=== PATIENT | female | born 1985 | race American Indian/Alaskan Native ===

== ENCOUNTER 2018-09-24 11:11 | Inpatient (IN) | payer MEDICAID, OTHER ==
[2018-09-24] MEDS ORDERED: LACTATED RINGERS 500 ML IV ONE (11:39)
[2018-09-24 12:49] LABS: Hemoglobin 11.8 gm/dl (10.1-14.3); Mean Corpuscular HGB Conc 34 % (30-34); Mean Corpuscular Volume 96 fl (79-97); Platelet Count 195 K/mm3 (140-440); Red Blood Count 3.63 M/mm3 (3.65-5.03); Red Cell Distribution Width 13.6 % (13.2-15.2)
[2018-09-24] MEDS ORDERED: APRESOLINE IV PRN (12:50)
[2018-09-24 13:01] LABS: Bilirubin,Urine NEG (Negative); Blood,Urine SM (Negative); Color,Urine Yellow (Yellow); Hyaline Casts,Urine 1 /LPF; Mucus,Urine FEW /HPF; Urobilinogen,Urine < 2.0 mg/dL (<2.0)
[2018-09-24 13:07] LABS: Alanine Aminotransferase 22 units/L (7-56); Uric Acid 4.1 mg/dL (3.5-7.6)
--- NOTE | 2018-09-24 13:09 | History and Physical Report ---
History of Present Illness Date of examination: 09/24/18 Date of admission: 09/24/18 12:18 Chief complaint: SIUP at 28 weeks and 5 days gestation with elevated BP and contractions. History of present illness: Patient is a 32 year old , LMP 03/06/18, EDC 12/11/18 at 28 weeks and 5 days gestation who was sent from the office for elevated BP and irregular cont ractions. In the triage, her BP was in the 170's/100's. Patient was seen in the ER at [place] 3 days ago for contractions. She given IV fluids and 2 doses of terbutaline. She said that her contractions returned 4 hours later and she has been ellyn since. She denies any fluid leakage or bleeding. She reports good movement. Exam: cervix closed/50%/-3. Greenish discharge. tracing is CAT1. Past History - Obstetrical History Expected Date of Delivery: 12/11/18 Actual Gestation: 29 Week(s) 0 Day(s) : 3 Para: 1 Number of Pregnancies: 1 Spontaneous Abortions: 1 Number of Living Children: 1 Medications and Allergies Allergies Allergy/AdvReac Type Severity Reaction Status Date / Time No Known Allergies Allergy Unverified 05/14/14 11:13 Home Medications Medication Instructions Recorded Confirmed Last Taken Type Fluticasone [Flonase] 1 spray NS QDAY #1 bottle 05/14/14 Unknown Rx Promethazine /Codeine 5 ml PO Q6H PRN #120 ml 05/14/14 Unknown Rx [Phenergan/Codeine 6.25-10 mg/5 ml] predniSONE [Deltasone] 40 mg PO QDAY #10 tab 05/14/14 Unknown Rx Active Meds: Active Medications Acetaminophen (Tylenol) 650 mg PO ONCE ONE Stop: 09/24/18 13:41 Hydralazine HCl (Apresoline) 5 mg IV Q30MIN PRN PRN Reason: Hypertension Metronidazole (Flagyl) 2,000 mg PO ONCE ONE; Protocol Stop: 09/24/18 13:46 Nifedipine (Procardia*For Tocolysis Only*) 10 mg PO Q4HR LEONA - Vital Signs Vital signs: Vital Signs Pulse BP 67 178/103 09/24/18 11:53 09/24/18 11:53 Temp Pulse Resp BP Pulse Ox 66 163/100 09/24/18 12:54 09/24/18 12:54 - Physical Exam Cardiovascular: Normal S1, Normal S2 Lungs: Positive: Clear to auscultation Vulva: both: normal Vagina: Positive: discharge (Greenish) Adnexa: both: normal Deep Tendon Reflex Grade: Normal but brisk +3 - Obstetrical FHR: category 1 Uterine Contraction Monitor Mode: External Cervical Dilatation: 0 Cervical Effacement Percentage: 0 station: -3 Uterine Contraction Pattern: Absent Results Result Diagrams: 09/24/18 12:00 09/24/18 12:00 Abnormal lab results 09/24/18 Range/Units 12:00 RBC 3.63 L (3.65-5.03) M/mm3 MCH 33 H (28-32) pg All other labs normal. Assessment and Plan - Patient Problems (1) 28 weeks gestation of Current Visit: Yes Status: Acute (2) contractions Current Visit: Yes Status: Acute Plan to address problem: FFN done. (3) Pre-eclampsia Current Visit: Yes Status: Acute Plan to address problem: Admit to antepartum. IV fluid. Monitor BP. Labetolol for BP control. Hydralazine for diastolic >100. Toxemia labs. Magnesium sulfate for seizure prophylaxis. Monitor Mg levels, urine output, DTRs. NICU and [facility] consults. (4) Vaginal discharge Current Visit: Yes Status: Acute Plan to address problem: Genital Cx done. Flagyl given.
[2018-09-24] MEDS ORDERED: TYLENOL PO ONE ×2 (13:40→22:00)
[2018-09-24] MEDS ORDERED: FLAGYL PO ONE (13:45)
[2018-09-24] MEDS ORDERED: MAGNESIUM SULFATE 40GM/1000ML 40 GM/1,000 ML BAG IV SCH ×2 (14:00→23:45)
[2018-09-24] MEDS ORDERED: NORMODYNE PO SCH (14:00)
[2018-09-24] MEDS ORDERED: MAGNESIUM SULFATE 4GM/100ML 4 GM/100 ML BAG IV ONE (14:00)
[2018-09-24] MEDS ORDERED: CELESTONE SOLUSPAN IM SCH (14:20)
--- NOTE | 2018-09-24 14:45 | Event Note ---
Date: 09/24/18 Patient was admitted for elevated BP. She was given hydralazine 5 mg IV for diastolic of 107. She was then started on magnesium sulfate. Her BP decreased to 90/53 after the hydralazine and bradycardia was noticed. I was in the OR in a C/section. The nurse came in to notify me. Ephedrine was given. The nurse called another provider to assess the patient while I was still in the OR in a case. She called Dr. Narayan who came in a few minutes later. At that time, the BP recoved to 117/67. tracing in 140's, no further decelerations were seen. Sonogram was ordered. Patient remained stable after the event.
--- NOTE | 2018-09-24 16:01 | Ultrasound Report ---
PROCEDURE: US OB BPP WO NON-STRESS TECHNIQUE: Limited OB ultrasound for BPP HISTORY: HTN COMPARISONS: None FINDINGS: Biophysical profile scoring [2]movement [2]tone [2]breathing [2]fluid 8/8 overall score Activity: Monitored Cardiac motion: 155 BPM using M-mode doppler Amniotic Fluid Volume: Adequate IMPRESSION: Single viable with 8/8 biophysical profile score This document is electronically signed by Kimmie Cantrell MD., September 24 2018 03:58:43 PM ET
[2018-09-24] MEDS ORDERED: LACTATED RINGERS 1,000 ML ONE (16:46)
--- NOTE | 2018-09-24 16:49 | Ultrasound Report ---
PROCEDURE: US OB FOLLOW UP TECHNIQUE: Obstetric ultrasound was performed HISTORY: HTN COMPARISONS: None. FINDINGS: There is a single live intrauterine in cephalic presentation. Amniotic fluid index is 13.1 cm. heart rate is 149 bpm. Biparietal diameter is 6.47 cm, which corresponds to a gestational age of 26 weeks, 1 day. Head circumference is 24.42 cm, which corresponds to a gestational age of 26 weeks, 4 days. Abdominal circumference is 20.52 cm, corresponding to a gestational age of 25 weeks, 1 day. Femoral length is 4.82 cm, which corresponds to a gestational age of 26 weeks, 1 day. Composite gestational age by ultrasound is 26 weeks, 0 days, with estimated date of delivery of 019. Estimated weight is 839 g. IMPRESSION: Single live intrauterine with gestational age by ultrasound of 26 weeks, 0 days, with estim ated date of delivery of 12/31/2018. This document is electronically signed by Christina Corcoran MD., September 24 2018 04:47:43 PM ET
--- NOTE | 2018-09-24 20:04 | Ultrasound Report ---
PROCEDURE: US OB VELOCIMETRY UMBILCAL ART TECHNIQUE: Real-time color duplex sonography was performed of the umbilical cord. Images are submitt ed for interpretation. HISTORY: Hypertension COMPARISONS: OB ultrasound performed on the same day FINDINGS: heart rate 154 bpm. S/D ratio: 1. free loop: 2.8 2. free loop: 3.42 3. free loop: 2.8 S/D ratio average: 3.0 Diastolic flow is preserved. Waveform appears normal RI: 1. free loop: 0.65 2. free loop: 0.7 3. free loop: 0.65 RI average: 0.67 Diastolic flow is preserved. Waveform appears normal. IMPRESSION: Normal Umbilical Cord duplex This document is electronically signed by Dinora Art MD., September 24 2018 08:01:49 PM ET
--- NOTE | 2018-09-24 22:58 | Progress Note ---
Assessment and Plan - Patient Problems (1) 28 weeks gestation of Current Visit: Yes Status: Acute (2) contractions Current Visit: Yes Status: Acute Plan to address problem: FFN done. (3) Pre-eclampsia Current Visit: Yes Status: Acute Plan to address problem: Monitor BP. Labetolol for BP control. Hydralazine for diastolic >100. Patient is symptomatic. Will restart magnesium sulfate for seizure prophylaxis. Monitor Mg levels, urine output, DTRs. Subjective - Subjective Date of service: 09/24/18 Principal diagnosis: SIUP at 28 weeks 5 days gestation with elevated BP. Interval history: Patient is a 32 year old , LMP 03/06/18, EDC 12/11/18 at 28 weeks and 5 days gestation who was admitted for elevated BP and contractions. Her BP was in the 170's/100's on admission. She was started on magnesium sulfate, celestone dose #1 given for FLM. She denies any fluid leakage or bleeding. She reports good movement. Later on this afternoon, her BP became stable and the magnesium was discontinued by the covering provider. I was called by the nurse to assess the patient for headache and visual disturbances. Her current BP is 128/80. Patient says that she is still having contractions and sees spots of light in front of her eyes. Cervix: deferred. Objective - Vital Signs Vital Signs: Vital Signs - 12hr 09/24/18 09/24/18 09/24/18 11:53 12:09 12:24 Temperature Pulse Rate 67 70 68 Respiratory Rate Blood Pressure 178/103 156/94 167/98 09/24/18 09/24/18 09/24/18 12:39 12:54 13:09 Temperature Pulse Rate 81 66 67 Respiratory Rate Blood Pressure 172/107 163/100 156/93 09/24/18 09/24/18 09/24/18 13:10 13:25 13:39 Temperature 98.2 F Pulse Rate 83 123 H Respiratory 20 Rate Blood Pressure 144/88 117/59 09/24/18 09/24/18 09/24/18 13:54 14:10 14:15 Temperature Pulse Rate 112 H 87 92 H Respiratory Rate Blood Pressure 119/61 84/49 90/53 09/24/18 09/24/18 09/24/18 14:19 14:24 14:39 Temperature Pulse Rate 102 H 112 H 100 H Respiratory Rate Blood Pressure 101/57 127/70 103/58 09/24/18 09/24/18 09/24/18 14:54 15:11 15:24 Temperature Pulse Rate 101 H 96 H 100 H Respiratory Rate Blood Pressure 111/66 119/84 127/85 09/24/18 09/24/18 09/24/18 15:39 15:55 16:09 Temperature Pulse Rate 93 H 92 H 90 Respiratory Rate Blood Pressure 129/76 134/76 132/75 09/24/18 09/24/18 09/24/18 16:24 16:39 16:54 Temperature Pulse Rate 93 H 95 H 91 H Respiratory Rate Blood Pressure 123/67 137/81 132/88 09/24/18 09/24/18 09/24/18 17:09 17:24 17:39 Temperature Pulse Rate 95 H 95 H 91 H Respiratory Rate Blood Pressure 134/84 136/82 132/80 09/24/18 09/24/18 09/24/18 17:54 18:09 18:24 Temperature Pulse Rate 95 H 82 114 H Respiratory Rate Blood Pressure 140/84 140/84 94/51 09/24/18 09/24/18 09/24/18 18:39 18:54 19:09 Temperature Pulse Rate 111 H 116 H 103 H Respiratory Rate Blood Pressure 102/51 108/50 129/68 09/24/18 09/24/18 09/24/18 19:24 19:39 19:54 Temperature Pulse Rate 101 H 98 H 100 H Respiratory Rate Blood Pressure 126/67 123/62 113/63 09/24/18 09/24/18 09/24/18 20:09 20:25 20:40 Temperature Pulse Rate 98 H 96 H 98 H Respiratory Rate Blood Pressure 119/67 123/68 122/76 09/24/18 09/24/18 09/24/18 20:54 21:10 21:25 Temperature Pulse Rate 91 H 102 H 95 H Respiratory Rate Blood Pressure 127/77 137/82 132/79 09/24/18 09/24/18 09/24/18 21:38 21:39 21:54 Temperature Pulse Rate 100 H 105 H Respiratory 18 Rate Blood Pressure 119/62 122/63 09/24/18 09/24/18 09/24/18 22:09 22:24 22:39 Temperature Pulse Rate 101 H 105 H 104 H Respiratory Rate Blood Pressure 111/62 123/76 137/86 - Exam Cardiovascular: Normal S1, Normal S2 Lungs: Clear to auscultation Vulva: both: normal FHR: category 1 Uterine Contraction Monitor Mode: External - Labs Labs: Abnormal Labs 09/24/18 09/24/18 09/24/18 12:00 12:00 20:27 RBC 3.63 L MCH 33 H Creatinine 0.5 L Magnesium 2.40 H Lactate Dehydrogenase 330 H Laboratory Results - last 24 hr 09/24/18 09/24/18 09/24/18 11:45 12:00 12:00 WBC 9.4 RBC 3.63 L Hgb 11.8 Hct 35.0 MCV 96 MCH 33 H MCHC 34 RDW 13.6 Plt Count 195 Creatinine 0.5 L Estimated GFR > 60 Uric Acid 4.1 Magnesium AST 28 ALT 22 Lactate Dehydrogenase 330 H Urine Color Yellow Urine Turbidity Slightly-cloudy Urine pH 7.0 Ur Specific [place] 1.019 Urine Protein 100 mg/dl Urine Glucose (UA) Neg Urine Ketones Neg Urine Blood Sm Urine Nitrite Neg Urine Bilirubin Neg Urine Urobilinogen < 2.0 Ur Leukocyte Esterase Tr Urine WBC (Auto) 3.0 Urine RBC (Auto) 5.0 U Epithel Cells (Auto) 13.0 Hyaline Casts 1 Urine Mucus Few Fibronectin 09/24/18 09/24/18 12:45 20:27 WBC RBC Hgb Hct MCV MCH MCHC RDW Plt Count Creatinine Estimated GFR Uric Acid Magnesium 2.40 H AST ALT Lactate Dehydrogenase Urine Color Urine Turbidity Urine pH Ur Specific [place] Urine Protein Urine Glucose (UA) Urine Ketones Urine Blood Urine Nitrite Urine Bilirubin Urine Urobilinogen Ur Leukocyte Esterase Urine WBC (Auto) Urine RBC (Auto) U Epithel Cells (Auto) Hyaline Casts Urine Mucus Fibronectin Negative
[2018-09-25] MEDS: LACTATED RINGERS 1,000 ML IV SCH ×2 (01:19→12:43)
[2018-09-25] MEDS: PROCARDIA*For Tocolysis only PO SCH ×2 (08:15→11:27)
--- NOTE | 2018-09-25 08:19 | Progress Note ---
Assessment and Plan - Patient Problems (1) 28 weeks gestation of Current Visit: Yes Status: Acute (2) contractions Current Visit: Yes Status: Acute Plan to address problem: FFN negative. (3) Pre-eclampsia Current Visit: Yes Status: Acute Plan to address problem: Monitor BP. Labetolol for BP control. Hydralazine for diastolic >100. Patient is symptomatic. Pt is on magnesium sulfate for seizure prophylaxis. Monitor Mg levels, urine output, DTRs. Subjective - Subjective Date of service: 09/25/18 Principal diagnosis: SIUP at 29 weeks gestation with elevated BP. Interval history: Patient is a 32 year old , LMP 03/06/18, EDC 12/11/18 at 29 weeks gestation who was admitted for elevated BP and contractions. Her BP was in the 170's/100's on admission. She was started on magnesium sulfate, celestone dose #1 given for FLM. She denies any fluid leakage or bleeding. She reports good movement. Later in the day, her BP became stable and the magnesium was discontinued by the covering provider. I was called by the nurse to assess the patient for headache and visual disturbances. Her current BP is 128/80. Patient says that she is still having contractions and sees spots of light in front of her eyes. Magnesium was restarted. Her BP remained stable during the night. This AM, she reported occasional headache. She reports occasional cramps. Cervix:closed (unchanged). Sonogram 09/24 showed normal growth patterns and umbilical doppler, BPP 8/8. Objective - Vital Signs Vital Signs: Vital Signs - 12hr 09/24/18 09/24/18 09/24/18 20:25 20:40 20:54 Pulse Rate 96 H 98 H 91 H Respiratory Rate Blood Pressure 123/68 122/76 127/77 09/24/18 09/24/18 09/24/18 21:10 21:25 21:38 Pulse Rate 102 H 95 H Respiratory 18 Rate Blood Pressure 137/82 132/79 09/24/18 09/24/18 09/24/18 21:39 21:54 22:09 Pulse Rate 100 H 105 H 101 H Respiratory Rate Blood Pressure 119/62 122/63 111/62 09/24/18 09/24/18 09/24/18 22:24 22:39 22:54 Pulse Rate 105 H 104 H 105 H Respiratory Rate Blood Pressure 123/76 137/86 139/85 09/24/18 09/24/18 09/24/18 23:09 23:24 23:39 Pulse Rate 96 H 95 H 94 H Respiratory Rate Blood Pressure 127/65 130/66 132/66 09/24/18 09/25/18 09/25/18 23:54 00:09 00:24 Pulse Rate 95 H 100 H 99 H Respiratory Rate Blood Pressure 119/61 130/76 121/66 09/25/18 09/25/18 09/25/18 00:39 00:54 01:09 Pulse Rate 98 H 93 H 89 Respiratory Rate Blood Pressure 128/59 125/65 115/70 09/25/18 09/25/18 09/25/18 01:24 01:55 02:10 Pulse Rate 92 H 90 90 Respiratory Rate Blood Pressure 116/71 131/73 132/70 09/25/18 09/25/18 09/25/18 02:25 02:39 02:54 Pulse Rate 90 90 90 Respiratory Rate Blood Pressure 128/70 108/59 124/61 09/25/18 09/25/18 09/25/18 03:09 03:24 03:40 Pulse Rate 84 92 H 83 Respiratory Rate Blood Pressure 108/57 113/56 110/58 09/25/18 09/25/18 09/25/18 03:55 04:09 04:24 Pulse Rate 92 H 84 83 Respiratory Rate Blood Pressure 115/63 115/61 116/60 09/25/18 09/25/18 09/25/18 04:39 04:54 05:09 Pulse Rate 81 82 95 H Respiratory Rate Blood Pressure 106/56 112/59 119/67 09/25/18 09/25/18 09/25/18 05:24 05:39 05:54 Pulse Rate 86 87 81 Respiratory Rate Blood Pressure 118/62 116/65 116/61 09/25/18 09/25/18 09/25/18 06:09 06:24 06:39 Pulse Rate 83 82 85 Respiratory Rate Blood Pressure 116/60 115/61 111/60 09/25/18 09/25/18 09/25/18 06:54 07:09 07:24 Pulse Rate 85 84 87 Respiratory Rate Blood Pressure 111/59 117/63 120/62 0309/25/18 09/25/18 07:39 07:54 08:09 Pulse Rate 83 87 86 Respiratory Rate Blood Pressure 124/72 128/72 125/73 - Exam Cardiovascular: Normal S1, Normal S2 Lungs: Clear to auscultation Vulva: both: normal FHR: category 1 Uterine Contraction Monitor Mode: External Cervical Dilatation: 0 Cervical Effacement Percentage: 0 station: -3 Uterine Contraction Pattern: Absent Deep Tendon Reflex Grade: Normal +2 - Labs Labs: Abnormal Labs 09/24/18 09/24/18 09/24/18 12:00 12:00 20:27 RBC 3.63 L MCH 33 H Creatinine 0.5 L Magnesium 2.40 H Lactate Dehydrogenase 330 H Laboratory Results - last 24 hr 09/24/18 09/24/18 09/24/18 11:45 12:00 12:00 WBC 9.4 RBC 3.63 L Hgb 11.8 Hct 35.0 MCV 96 MCH 33 H MCHC 34 RDW 13.6 Plt Count 195 Creatinine 0.5 L Estimated GFR > 60 Uric Acid 4.1 Magnesium AST 28 ALT 22 Lactate Dehydrogenase 330 H Urine Color Yellow Urine Turbidity Slightly-cloudy Urine pH 7.0 Ur Specific [place] 1.019 Urine Protein 100 mg/dl Urine Glucose (UA) Neg Urine Ketones Neg Urine Blood Sm Urine Nitrite Neg Urine Bilirubin Neg Urine Urobilinogen < 2.0 Ur Leukocyte Esterase Tr Urine WBC (Auto) 3.0 Urine RBC (Auto) 5.0 U Epithel Cells (Auto) 13.0 Hyaline Casts 1 Urine Mucus Few Fibronectin 09/24/18 09/24/18 12:45 20:27 WBC RBC Hgb Hct MCV MCH MCHC RDW Plt Count Creatinine Estimated GFR Uric Acid Magnesium 2.40 H AST ALT Lactate Dehydrogenase Urine Color Urine Turbidity Urine pH Ur Specific [place] Urine Protein Urine Glucose (UA) Urine Ketones Urine Blood Urine Nitrite Urine Bilirubin Urine Urobilinogen Ur Leukocyte Esterase Urine WBC (Auto) Urine RBC (Auto) U Epithel Cells (Auto) Hyaline Casts Urine Mucus Fibronectin Negative - Results US- obstetric: report reviewed
[2018-09-25] MEDS ORDERED: ZOFRAN IV PRN (10:42)
[2018-09-25] MEDS ORDERED: COLACE PO PRN (12:16)
[2018-09-25] MEDS ORDERED: TYLENOL PO PRN (12:16)
[2018-09-25] MEDS: TYLENOL PO PRN ×2 (12:28→17:52)
[2018-09-25] MEDS: NORMODYNE PO SCH ×3 (12:32→22:49)
[2018-09-25] MEDS ORDERED: AMBIEN ONE (21:03)
[2018-09-25] MEDS ORDERED: AMBIEN PO PRN (22:50)
[2018-09-26] MEDS ORDERED: PRENATAL VITAMIN PO SCH (10:00)
[2018-09-26] MEDS: NORMODYNE PO SCH ×2 (10:30→10:31)
--- NOTE | 2018-09-26 12:28 | Progress Note ---
Assessment and Plan - Patient Problems (1) 28 weeks gestation of Current Visit: Yes Status: Acute (2) contractions Current Visit: Yes Status: Acute Plan to address problem: FFN negative. Contractions stopped. (3) Pre-eclampsia Current Visit: Yes Status: Acute Plan to address problem: Magnesium sulfate for seizure prophylaxis was disconinued yesterday. Patient is symptomatic now. BP has been stable. Patient will be discharged home on labetolol for BP control. Rx given to her. (4) Vaginal discharge Current Visit: Yes Status: Acute Plan to address problem: Genital Cx done. Flagyl given. Subjective - Subjective Date of service: 09/26/18 Principal diagnosis: SIUP at 29 weeks gestation with elevated BP. Interval history: Patient is a 32 year old , LMP 03/06/18, EDC 12/11/18 at 29 weeks gestation who was admitted for elevated BP and contractions. Her BP was in the 170's/100's on admission. She was started on magnesium sulfate, celestone 2 doses completed for FLM. She denies any fluid leakage or bleeding. She reports good movement. Later in the day, her BP became stable and the magnesium was discontinued by the covering provider. I was called by the nurse to assess the patient for headache and visual disturbances. Her current BP is 128/80. Patient says that she is still having contractions and sees spots of light in front of her eyes. Magnesium was restarted. Her BP remained stable during the night. This AM, she denies any complaint. Cervix:closed (unchanged). Sonogram kali dmission showed normal cord doppler and BPP 8/8. Objective - Vital Signs Vital Signs: Vital Signs - 12hr 09/26/18 09/26/18 09/26/18 00:25 00:39 00:54 Pulse Rate 86 85 86 Blood Pressure 120/77 122/78 127/75 09/26/18 09/26/18 09/26/18 01:09 02:00 06:07 Pulse Rate 88 85 83 Blood Pressure 131/76 129/70 139/77 09/26/18 09/26/18 08:22 12:04 Pulse Rate 86 85 Blood Pressure 141/82 126/69 - Exam Cardiovascular: Normal S1, Normal S2 Lungs: Clear to auscultation Vulva: both: normal FHR: category 1 Uterine Contraction Monitor Mode: External Cervical Dilatation: 0 Deep Tendon Reflex Grade: Normal +2 - Labs Labs: Abnormal Labs 09/24/18 09/24/18 09/24/18 12:00 12:00 20:27 RBC 3.63 L MCH 33 H Creatinine 0.5 L Magnesium 2.40 H Lactate Dehydrogenase 330 H Ur Total Protein 24 Hr Urine Total Protein 09/25/18 09/25/18 09/25/18 07:55 17:48 22:49 RBC MCH Creatinine Magnesium 4.40 H 5.10 H 5.20 H Lactate Dehydrogenase Ur Total Protein 24 Hr Urine Total Protein 09/25/18 Unknown RBC MCH Creatinine Magnesium Lactate Dehydrogenase Ur Total Protein 24 Hr 589.00 H Urine Total Protein 19 H Laboratory Results - last 24 hr 09/25/18 09/25/18 09/25/18 17:48 22:49 Unknown Magnesium 5.10 H 5.20 H Urine Total Volume 3100 Ur Total Protein 24 Hr 589.00 H Urine Total Protein 19 H - Results US- obstetric: report reviewed
--- NOTE | 2018-09-26 12:36 | Discharge Summary ---
Providers - Providers Date of Admission: 09/26/18 09:02 Date of discharge: 09/26/18 Attending physician: JULIETH OH MD Primary care physician: JULIETH OH MD Hospitalization Reason for admission: other ( contractions, pre-eclampsia.) Procedure: other (magnesium sulfate for pre-eclampsia.) Discharge diagnosis: other (pre-eclampsia, contractions.) Hospital course: Patient is a 32 year old , LMP 03/06/18, EDC 12/11/18 at 29 weeks gestation who was admitted for elevated BP and contractions. Her BP was in the 170's/100's on admission. She was started on magnesium sulfate, celestone 2 doses completed for FLM. She denies any fluid leakage or bleeding. She reports good movement. Later in the day, her BP became stable and the magnesium was discontinued by the covering provider. I was called by the nurse to assess the patient for headache and visual disturbances. Her current BP is 128/80. Patient says that she is still having contractions and sees spots of light in front of her eyes. Magnesium was restarted. Her BP remained stable during the night. This AM, she denies any complaint. Cervix:closed (unchanged). Sonogram on admission showed normal cord doppler and BPP 8/8. Condition at discharge: Stable Disposition: [id number] TO HOME OR SELFCARE - Discharge Diagnoses (1) 28 weeks gestation of Status: Acute (2) contractions Status: Acute (3) Pre-eclampsia Status: Acute (4) Vaginal discharge Status: Acute Plan - Provider Discharge Summary Activity: no sex for 6 weeks Diet: routine Instructions: routine Additional instructions: [] Smoking cessation referral if applicable(refer to patient education folder for contact #) [] Refer to [facility] Booklet Call your doctor immediately for: * Fever > 100.5 * Heavy vaginal bleeding ( >1 pad per hour) * Severe persistent headache * Shortness of breath * Reddened, hot, painful area to leg or breast * Drainage or odor from incision. * Keep incision clean and dry at all times and follow doctor's instructions regarding bathing/showering - Follow up plan Follow up: JULIETH OH MD [Primary Care Provider] - 7 Days
--- NOTE | 2018-09-26 15:02 | Ultrasound Report ---
OB ULTRASOUND History: hypertension. Technique: Transabdominal ultrasound with Doppler interrogation. Gestation: Single Position: Cephalic Amniotic Fluid: Normal WHITNEY = 13.6 cm Heart Rate: 128 BPM BPD: 6.3 cm = 25 w 4 d HC: 24.0 cm = 26 w 0 d AC: 20.1 cm = 24 w 5 d FL: 4.8 cm = 26 w 2 d HC/AC Ratio: 1.19 Cephalic Index: 79.8 Estimated Weight: 812 grams Clinical age = 29 w 1 d EDC: 12/11/18 US Gest. Age = 25 w 5 d EDC: 01/04/19 IMPRESSION: Viable, single intrauterine as described.
--- NOTE | 2018-09-26 15:02 | Ultrasound Report ---
ULTRASOUND BIOPHYSICAL PROFILE: History: Hypertension Technique: Transabdominal ultrasound with Doppler interrogation. 2 - breathing movements 2 - movements 2 - posture and tone 2 - Qualitative amniotic fluid volume 8 - TOTAL SCORE OF POSSIBLE 8 Heart Rate (bpm) 129
--- NOTE | 2018-09-26 15:03 | Ultrasound Report ---
ULTRASOUND OB VELOCIMETRY UMBILICAL ARTERY HISTORY: Hypertension. TECHNIQUE: Transabdominal ultrasound. Spectral Doppler interrogation was performed on 3 segments of the umbilical cord. FINDINGS: heart rate measures 134 beats per minute. The spectral waveforms are normal and persistent. No evidence for loss or reversal of end-diastolic flow. The resistive index average measures 0.69. The systolic/diastolic ratio average measures 3.20. IMPRESSION: Mildly elevated resistive indices.
[2018-09-26 15:57] VITALS: BP 144/67
== END 2018-09-26 16:25 | disposition home or self-care (01) | DRG 781 ==
LOC: TRG 11:11 → LD 11:33 → TRG 12:17 → LD 12:18 → OBSVTOIN 09-26 09:02
PROVIDERS: ADMIT Obstetrics & Gynecology; ATTEND Obstetrics & Gynecology
DX: O14.93 Unspecified pre-eclampsia, third trimester (principal); O60.03 Preterm labor without delivery, third trimester; O76 Abnormality in fetal heart rate and rhythm complicating labor and delivery; N89.8 Other specified noninflammatory disorders of vagina; O26.893 Other specified pregnancy related conditions, third trimester; Z3A.28 28 weeks gestation of pregnancy
CPT/HCPCS: 36415; 76816; 76819; 76820; 81001; 82565; 82731; 83615; 83735; 84156; 84450; 84460; 84550; 85027; 87591; G0378; J0360; J0702; J2405; J3475; J7120

== ENCOUNTER 2018-09-29 17:17 | Inpatient (IN) | payer OTHER ==
[~2018-09-29 17:17] MED LIST: ANCEF/STERILE WATER 2 GM/20 ML IV ONE
[2018-09-29] MEDS ORDERED: LACTATED RINGERS 500 ML IV ONE (17:51)
[2018-09-29] MEDS ORDERED: TYLENOL PO PRN (18:12)
[2018-09-29] MEDS ORDERED: APRESOLINE IV ONE (18:17)
[2018-09-29] MEDS ORDERED: MAGNESIUM SULFATE 4GM/100ML 4 GM/100 ML BAG IV ONE (18:22)
[2018-09-29 18:49] LABS: Bilirubin,Urine NEG (Negative); Blood,Urine SM (Negative); Color,Urine Yellow (Yellow); Mucus,Urine FEW /HPF; Urobilinogen,Urine < 2.0 mg/dL (<2.0)
--- NOTE | 2018-09-29 18:52 | History and Physical Report ---
History of Present Illness Date of examination: 09/29/18 Date of admission: 09/29/18 18:24 Chief complaint: Elevated blood pressure, headache. History of present illness: 32 year old presents with complaint of elevated blood pressure and headache and facial swelling. Patient has chronic hypertension with superimposed preeclampsia. She was admitted this past week for blood pressure control, magnesium sulfate, and corticosteroids for FLM. She was discharged home on Labetalol 200 mg po BID and states she has been compliant with her medications. Patient states today she developed a persistent headache and facial swelling. She states she also has chest pain and shortness of breath. Patient states she has received regular care at [facility]; no records are available. records have been requested. Patient's self-reported EDC is 12/11/2018. She states her LMP was 03/06/2018. US done here at [facility] on 09/24/2018 shows EDC of 12/31/2018. Patient states her has been significant for chronic hypertension, superimposed preeclampsia, anemia, asthma, and sickle cell trait. Patient states her current medications are Labetalol and iron. She reports allergy to Hydrocodone. Patient has had a previous section at a late gestation (35 weeks). Past History Past Medical History: asthma, hypertension, other (anemia, sickle cell trait) Past Surgical History: section [employer] History: denies: chlamydia, gonorrhea, hepatitis B, hepatitis C, HIV, syphilis Family/Genetic History: diabetes, hypertension, cancer, sickle cell/trait Social history: lives with family, full code. denies: smoking, alcohol abuse, prescription drug abuse, IV drug use - Obstetrical History Expected Date of Delivery: 12/11/18 Actual Gestation: 29 Week(s) 4 Day(s) : 3 Para: 1 Hx # Term Pregnancies: 0 Number of Pregnancies: 2 Spontaneous Abortions: 1 Induced : 0 Number of Living Children: 1 Medications and Allergies Allergies Allergy/AdvReac Type Severity Reaction Status Date / Time hydrocodone Allergy Itching Verified 09/29/18 17:51 Home Medications Medication Instructions Recorded Confirmed Last Taken Type Fluticasone [Flonase] 1 spray NS QDAY #1 bottle 05/14/14 Unknown Rx Promethazine /Codeine 5 ml PO Q6H PRN #120 ml 05/14/14 Unknown Rx [Phenergan/Codeine 6.25-10 mg/5 ml] predniSONE [Deltasone] 40 mg PO QDAY #10 tab 05/14/14 Unknown Rx Active Meds: Active Medications Acetaminophen (Tylenol) 650 mg PO Q4H PRN PRN Reason: Pain MILD(1-3)/Fever >100.5/RODRIGUEZ Last Admin: 09/29/18 18:51 Dose: 650 mg Documented by: Lactated Ringer's (Lactated Ringers) 1,000 mls @ 125 mls/hr IV DIRECT LEONA Magnesium Sulfate (Magnesium Sulfate 40gm/1000ml) 40 gm in 1,000 mls @ 50 mls/hr IV DIRECT LEONA Labetalol HCl (Normodyne) 200 mg PO BID LEONA Review of Systems All systems: negative (headache, elevated blood pressure, facial swelling, chest pain, shortness of breath) - Vital Signs Vital signs: Vital Signs Pulse BP 83 178/105 09/29/18 17:59 09/29/18 17:59 Temp Pulse Resp BP Pulse Ox 85 180/99 09/29/18 18:01 09/29/18 18:01 - Physical Exam Cardiovascular: Regular rate, Normal S1, Normal S2, Other (murmur heard) Lungs: Positive: Clear to auscultation Abdomen: Positive: normal appearance, soft. Negative: distention, tenderness, guarding, rigidity Uterus: Positive: enlarged Extremities: Positive: edema. Negative: tenderness - Obstetrical FHR: category 1 (appropriate for gestational age) Uterine Contraction Monitor Mode: External Uterine Contraction Pattern: Absent Results All other labs normal. Assessment and Plan A: at 29 weeks, 4 days gestation. Chronic hypertension with superimposed preeclampsia with severe features. Chest pain and shortness of breath. Heart murmur. P: Admit. IV Hydralazine. PO Labetalol. Magnesium Sulfate for seizure prophylaxis. EKG and chest X-ray. Preeclamptic labs. US for BPP, WHITNEY, cord dopplers. Continuous EFM. Serial blood pressures. Perinatology consult. Hospitalist consult (Dr. Foley). Consulted with Dr. Howard beverly: this patient due to preeclampsia with severe features superimposed on chronic hypertension and all the above symptoms. Management of patient turned over to Dr. Howard beverly: risk factors patient has.
[2018-09-29 18:58] LABS: Protein,Urine >500 mg/dL (Negative)
[2018-09-29] MEDS ORDERED: LACTATED RINGERS 1,000 ML IV SCH ×3 (19:00→21:00)
--- NOTE | 2018-09-29 19:52 | Ultrasound Report ---
PROCEDURE: US OB BPP WO NON-STRESS HISTORY: BPP FINDINGS: Biophysical profile was performed. Biophysical profile is 8 of 8. cardiac activity is present at 156 bpm. IMPRESSION: Biophysical profile 8 of 8 This document is electronically signed by Royce Colmenares MD., September 29 2018 07:50:53 PM ET
--- NOTE | 2018-09-29 19:52 | Ultrasound Report ---
PROCEDURE: US OB LIMITED HISTORY: WHITNEY FINDINGS: Real-time ultrasound of the pelvis was performed with attention to the gravid uterus. Amniotic fluid index was 8.6 cm which is within normal limits. cardiac activity is present at 1 56 bpm. The fetus lies in cephalic lie. The placenta is low-lying. There is a hypoechoic area within the placenta 2.9 x 3.5 x 1.7 cm without internal color Doppler flow. This is not depicted on the prior ultrasound examination of September 26. Di fferential diagnosis would include venous farr or partial abruption. IMPRESSION: Hypoechoic region within the inferior placenta active, new in comparison to prior ultraso und of September 26 which could represent venous farr or partial abruption Amniotic fluid index 8.6 cm which is normal This document is electronically signed by Royce Colmenares MD., September 29 2018 07:50:08 PM ET
--- NOTE | 2018-09-29 19:56 | Ultrasound Report ---
PROCEDURE: US OB VELOCIMETRY UMBILCAL ART HISTORY: BPP FINDINGS: Real-time ultrasound ultrasound of the umbilical artery was performed. S/D ratio was 3.55, which is in the upper range of normal for gestational age. Resistive index was 0.72 which is also the upper range of normal. IMPRESSION: Umbilical artery S/D ratio and resistive index are in the upper range of normal. This document is electronically signed by Royce Colmenares MD., September 29 2018 07:55:00 PM ET
--- NOTE | 2018-09-29 20:04 | Event Note ---
Date: 09/29/18 Radiology department called with a verbal report from the ultrasound done today; they state new partial placental abruption seen on today's ultrasound. Called Dr. Florin Lawrence and notified him of this finding/verbal report by radiology. Patient denies vaginal bleeding. No contractions noted on EFM but patient states she does feel occasional mild contractions. Patient states she feels active movement. She states for the past 2-3 days at home she has not felt good movement.
[2018-09-29] MEDS: MAGNESIUM SULFATE 40GM/1000ML 40 GM/1,000 ML BAG IV SCH (20:12)
[2018-09-29 20:31] LABS: Basophils # (Auto) 0.1 K/mm3 (0.0-0.1); Basophils % (Auto) 1.1 % (0.0-1.8); Eosinophils # (Auto) 0.1 K/mm3 (0.0-0.4); Eosinophils % (Auto) 1.1 % (0.0-4.3); Hematocrit 32.6 % (30.3-42.9); Hemoglobin 11.2 gm/dl (10.1-14.3); Lymphocytes # (Auto) 2.8 K/mm3 (1.2-5.4); Mean Corpuscular HGB Conc 35 % (30-34); Mean Corpuscular Volume 97 fl (79-97); Monocytes % (Auto) 9.8 % (0.0-7.3); Platelet Count 179 K/mm3 (140-440); Red Blood Count 3.38 M/mm3 (3.65-5.03); Red Cell Distribution Width 13.6 % (13.2-15.2)
--- NOTE | 2018-09-29 20:35 | Event Note ---
Date: 09/29/[address] Yao from [facility] re: consult I had put in for patient. Dr. Yao recommended immediate delivery due to symptomatic preeclampsia with severe features and partial placental abruption. Patient had steroids for FLM at last hospitalization this past week. Informed Dr. Lawrence re: Dr. Yao's recommendation.
[2018-09-29] MEDS ORDERED: REGLAN IV ONE ×2 (20:41→20:57)
[2018-09-29] MEDS ORDERED: BICITRA PO ONE ×2 (20:41→20:57)
[2018-09-29] MEDS ORDERED: PEPCID IV ONE ×2 (20:41→20:57)
[2018-09-29 20:50] LABS: Alanine Aminotransferase 24 units/L (7-56); Albumin 3.5 g/dL (3.9-5); BUN/Creatinine Ratio 20; Blood Urea Nitrogen 12 mg/dL (7-17); Calcium 9.7 mg/dL (8.4-10.2); Hemolysis Index 67; Uric Acid 4.4 mg/dL (3.5-7.6)
[2018-09-29 20:51] LABS: Creatine Kinase MB 1.5 ng/mL (0.0-4.0)
[2018-09-29] MEDS ORDERED: PITOCin/NS 20 UNIT/1000ML DRIP 20 UNITS/1,000 ML BAG IV SCH ×2 (21:00)
[2018-09-29] MEDS ORDERED: ANCEF/STERILE WATER 2 GM/20 ML 2 GM/20 ML SYRINGE IV NR (21:00)
[2018-09-29] MEDS ORDERED: PHENERGAN PO PRN (21:17)
[2018-09-29] MEDS ORDERED: ZOFRAN IV PRN (21:17)
[2018-09-29] MEDS ORDERED: PHENERGAN PR PRN (21:17)
[2018-09-29] MEDS ORDERED: NARCAN 0.4 MG/1 ML IV PRN ×2 (21:17→23:47)
--- NOTE | 2018-09-29 21:17 | Anesthesia Day of Surgery ---
Anesthesia Day of Surgery - Day of Surgery Patient Examined: Yes Patient H&P Reviewed: Yes Patient is NPO: Yes
--- NOTE | 2018-09-29 21:17 | Anesthesia Consultation ---
Anesthesia Consult and Med Hx Date of service: 09/29/18 - Airway Anesthetic Teeth Evaluation: Good ROM Head & Neck: Adequate Mental/Hyoid Distance: Adequate Mallampati Class: Class II Intubation Access Assessment: Good - Pulmonary Exam CTA: Yes - Cardiac Exam Cardiac Exam: RRR - Pre-Operative Health Status ASA Pre-Surgery Classification: ASA2 Proposed Anesthetic Plan: Spinal - Pulmonary Hx Asthma: No COPD: No Hx Pneumonia: No - Cardiovascular System Hx Hypertension: No - Central Nervous System Hx Seizures: No Hx Psychiatric Problems: No - Endocrine Hx Renal Disease: No Hx End Stage Renal Disease: No Hx Hypothyroidism: No Hx Hyperthyroidism: No - Hematic Hx Anemia: No Hx Sickle Cell Disease: No - Other Systems Hx Alcohol Use: No
[2018-09-29] MEDS ORDERED: SUBLIMAZE ONE (21:28)
--- NOTE | 2018-09-29 21:39 | Event Note ---
Date: 09/29/18 Evaluated for Chest pain Reflux esophagitis Serial troponins EKG ordered Protonix 40 mg po qd
[2018-09-29] MEDS ORDERED: SODIUM CHLORIDE FLUSH SYRINGE 10 ML IV PRN ×2 (22:00→23:45)
[2018-09-29 22:09] LABS: INR 0.82 (0.87-1.13)
[2018-09-29 22:10] LABS: Partial Thromboplastin Time 23.6 Sec. (24.2-36.6)
[2018-09-29] MEDS ORDERED: ZOFRAN ONE (22:26)
[2018-09-29] MEDS ORDERED: XYLOCAINE MPF 2% ONE (22:26)
[2018-09-29] MEDS ORDERED: NACL 0.9% IR ONE (22:30)
[2018-09-29] MEDS ORDERED: WATER FOR IRRIG STERILE IR ONE (22:30)
[2018-09-29] MEDS ORDERED: DILAUDID ONE (23:11)
--- NOTE | 2018-09-29 23:44 | Operative Report ---
Operative Report Operative Report: Date of procedure: 09/29/2018 Pre-operative diagnosis: 1. Intrauterine at 39-4/7 weeks 2. Severe preeclampsia 3. Placental abruption 4. Previous 5. Desires permanent sterilization Post-operative diagnosis: Same Procedure name(s): 1. Repeat low transverse section 2. Bilateral tubal ligation Surgeon: Aurelio Lawrence MD Cabin Worker: None Anesthesia: Spinal anesthesia EBL: 700 mL Findings: An 860 g female infant 6 at 1 minute and 8 at 5 minutes. Bloody amniotic fluid. Normal uterus. Normal tubes and ovaries bilaterally. Procedure: After the patient was prepped and draped in usual sterile fashion, and after satisfactory level of epidural anesthesia was obtained, the skin knife was used to make a transverse skin incision through the previous skin scar. The incision was excised down to layer of the fascia, which was nicked in the midline and extended laterally using the Bovie cautery. The rectus muscles were dissected off the rectus fascia both superiorly and inferiorly. The rectus bellies in the midline, and the peritoneum was entered under direct visualization. The peritoneal incision was extended superiorly and inferiorly. A bladder flap was created and the bladder blade was then placed. The uterus was scored in a curvilinear linear fashion, entered in the midline revealing bloody amniotic fluid. The infant's head was delivered onto the surgical field, and the oropharynx and nasopharynx were bulb suctioned. The rest of the 's body was delivered, cord was doubly clamped and cut and the infant was handed to the waiting respiratory team. Cord blood was then obtained. The placenta was manually removed from the uterus, and the uterus removed from its normal anatomical position. After gentle uterine lavage, the incision was inspected and found to be without extensions. It was then closed in 2 layers using 0 Vicryl suture in a running interlocking fashion, the second layer imbricating the first. After good hemostasis was achieved, copious amounts or irrigation was performed, and the gutters were suctioned free of blood and blood clots. Attention was then turned for the tubal ligation. First the right fallopian tube was grasped using the Horace, and the Filshie clip was applied to the proximal portion of the right tube. Next the left fallopian tube was grasped using the Micanopy, and the Filshie clip was applied to the proximal portion of the left tube. The Tisseel sealant was sprayed across the uterine incision. The uterus was then returned to its normal anatomical position, and after excellent hemostasis assured, the peritoneum was re-approximated using 3-0 Vicryl suture in a running interlocking fashion, and then the rectus muscles were re-approximated using 3-0 Vicryl suture in a [id number] configuration. The fascia was then re-approximated using 0 Vicryl suture in running interlocking fashion. The subcutaneous layer was made hemostatic using Bovie cautery, the Tisseel sealant was sprayed across the fascial incision and the skin edges re-approximated using 4-0 Vicryl suture in a sub-cuticular fashion. Patient tolerated the procedure well was transported to recovery in stable condition.
[2018-09-29] MEDS ORDERED: D5LR 1,000 ML IV SCH (23:45)
[2018-09-29] MEDS ORDERED: SENOKOT PO PRN (23:47)
[2018-09-29] MEDS ORDERED: MILK OF MAGNESIA PO PRN (23:47)
[2018-09-29] MEDS ORDERED: NORCO 5/325 PO PRN (23:47)
[2018-09-29] MEDS ORDERED: MYLICON PO PRN (23:47)
[2018-09-29] MEDS ORDERED: LANSINOH TP PRN (23:47)
[2018-09-29] MEDS ORDERED: TUCKS PAD TP PRN (23:47)
[2018-09-30] MEDS: APRESOLINE IV PRN ×2 (00:15→02:27)
[2018-09-30] MEDS: MAGNESIUM SULFATE 40GM/1000ML 40 GM/1,000 ML BAG IV SCH (00:17)
[2018-09-30] MEDS: DILAUDID IV PRN ×2 (00:32→00:39)
[2018-09-30] MEDS: TORADOL IV PRN ×2 (00:32→11:05)
[2018-09-30] MEDS: IBUPROFEN PO PRN ×3 (06:04→23:48)
[2018-09-30] MEDS: PERCOCET 5/325 PO PRN ×3 (06:05→23:47)
[2018-09-30] MEDS: ANCEF/NS 1 GM/50 ML 1 GM/50 ML BAG IV SCH ×2 (08:14→20:16)
[2018-09-30] MEDS: PITOCin/NS 20 UNIT/1000ML DRIP 20 UNITS/1,000 ML BAG IV SCH ×2 (08:15)
--- NOTE | 2018-09-30 09:40 | Post Anesthesia Evaluation ---
- Post Anesthesia Evaluation Patient Participated: Yes Airway Patent: Yes Stable Respiratory Function: Yes Nausea/Vomiting: No Temp > 96.8F: No Pain Manageable: Yes Adequeate Hydration: Yes Anesthesia Complications: No Block Receding Appropriately: Yes Patient on Ventilator: No
[2018-09-30 10:21] LABS: Creatine Kinase MB 3.9 ng/mL (0.0-4.0)
--- NOTE | 2018-09-30 10:33 | Progress Note ---
Assessment and Plan - Patient Problems (1) S/P repeat low transverse Current Visit: Yes Status: Acute Plan to address problem: POD 1 - stable Continue routine postop orders Anticipate discharge in 48 hours (2) Pre-eclampsia Current Visit: No Status: Acute Qualifiers: Trimester: third trimester Qualified Code(s): O14.93 - Unspecified pre- eclampsia, third trimester Plan to address problem: Asymptomatic - BPs stable Continue Labetalol 200mg PO BID Continue magnesium sulfate therapy Continue serial magnesium level, BP check, DTRs per protocol Advance diet as tolerated Discontinue magnesium sulfate per protocol and transfer patient to (3) Elevated creatine kinase level Current Visit: Yes Status: Acute Plan to address problem: Will consult MD about POC Subjective - Subjective Date of service: 09/30/18 Principal diagnosis: POD #1; s/p Repeat LTCS; Pre-eclampsia Interval history: see H&P, Event Notes and Operative Report Patient reports: appetite normal, dizzy ambulation, pain well controlled, flatus, no bowel movement, no other (goodwin catheter in place. Denies headache, visual disturbances or RUQ pain) [place]: in NICU Objective - Vital Signs Latest vital signs: Vital Signs Temp Pulse Resp BP BP Pulse Ox 09/30/18 10:29 85 99 09/30/18 10:24 85 99 09/30/18 10:20 81 135/72 09/30/18 10:19 94 H 99 09/30/18 10:14 87 100 09/30/18 10:09 86 100 09/30/18 10:04 82 100 09/30/18 09:59 81 99 09/30/18 09:54 82 100 09/30/18 09:50 80 138/85 09/30/18 09:49 79 100 09/30/18 09:44 84 100 09/30/18 09:39 79 100 09/30/18 09:34 81 99 09/30/18 09:29 81 99 09/30/18 09:24 85 99 09/30/18 09:20 82 136/74 09/30/18 09:18 85 99 09/30/18 09:14 92 H 99 09/30/18 09:09 89 98 09/30/18 09:04 83 98 09/30/18 08:58 85 99 09/30/18 08:53 87 99 09/30/18 08:50 93 H 116/73 09/30/18 08:48 97 H 99 09/30/18 08:43 85 98 09/30/18 08:39 92 H 99 09/30/18 08:33 91 H 98 09/30/18 08:28 86 98 09/30/18 08:23 85 98 09/30/18 08:21 93 H 141/82 09/30/18 08:19 88 98 09/30/18 08:13 95 H 98 09/30/18 08:09 92 H 98 09/30/18 08:04 81 96 09/30/18 07:59 83 96 09/30/18 07:53 83 96 09/30/18 07:50 83 136/71 09/30/18 07:48 82 96 09/30/18 07:43 83 97 09/30/18 07:38 86 97 09/30/18 07:33 84 97 09/30/18 07:28 83 97 09/30/18 07:23 82 98 09/30/18 07:20 83 156/86 09/30/18 07:18 87 99 09/30/18 07:13 87 99 09/30/18 07:08 87 99 09/30/18 07:03 86 99 09/30/18 06:58 90 99 09/30/18 06:53 89 99 09/30/18 06:50 84 154/80 09/30/18 06:48 89 99 09/30/18 06:43 89 99 09/30/18 06:38 95 H 100 09/30/18 06:33 94 H 99 09/30/18 06:28 92 H 99 09/30/18 06:23 90 100 09/30/18 06:20 87 141/78 09/30/18 06:18 87 100 09/30/18 06:13 91 H 99 09/30/18 06:08 89 99 09/30/18 06:03 87 98 09/30/18 05:58 93 H 99 09/30/18 05:53 94 H 98 09/30/18 05:50 92 H 135/76 09/30/18 05:48 86 96 09/30/18 05:43 88 96 09/30/18 05:38 88 96 09/30/18 05:33 87 97 09/30/18 05:28 85 96 09/30/18 05:23 88 96 09/30/18 05:20 90 133/71 09/30/18 05:18 87 97 09/30/18 05:13 85 96 09/30/18 05:08 86 96 09/30/18 05:03 86 96 09/30/18 04:58 84 96 09/30/18 04:53 90 96 09/30/18 04:50 93 H 133/74 09/30/18 04:48 87 95 09/30/18 04:43 86 96 09/30/18 04:38 88 96 09/30/18 04:33 87 96 09/30/18 04:28 94 H 96 09/30/18 04:23 86 96 09/30/18 04:20 95 H 140/71 09/30/18 04:18 86 96 09/30/18 04:13 86 95 09/30/18 04:08 84 97 09/30/18 04:03 88 97 09/30/18 03:58 91 H 98 09/30/18 03:53 86 96 09/30/18 03:50 89 138/78 09/30/18 03:48 83 96 09/30/18 03:43 85 96 09/30/18 03:38 86 96 09/30/18 03:33 98 H 98 09/30/18 03:28 98 H 98 09/30/18 03:23 99 H 98 09/30/18 03:20 92 H 140/68 09/30/18 03:18 95 H 98 09/30/18 03:13 86 98 09/30/18 03:08 91 H 99 09/30/18 03:03 94 H 98 09/30/18 03:00 98.1 F 16 09/30/18 02:58 99 H 99 09/30/18 02:53 90 98 09/30/18 02:50 98 H 136/89 09/30/18 02:48 86 98 09/30/18 02:43 97 H 137/80 99 09/30/18 02:35 110 H 98 09/30/18 02:34 107 H 94 09/30/18 02:30 84 98 09/30/18 02:27 91 H 174/92 09/30/18 02:25 97 H 98 09/30/18 02:20 100 H 174/92 98 04/01/19 02:15 93 H 99 09/30/18 02:10 87 99 09/30/18 02:05 97 H 97 09/30/18 02:00 95 H 98 09/30/18 01:55 92 H 98 09/30/18 01:52 98.0 F 16 09/30/18 01:50 93 H 154/87 99 09/30/18 00:55 98.4 F 92 H 11 L 153/93 09/30/18 00:40 98.1 F 99 H 152/98 09/30/18 00:25 97.5 F L 88 14 160/97 09/30/18 00:15 90 170/110 09/30/18 00:10 97.6 F 82 15 170/100 09/30/18 00:00 90 170/110 09/29/18 23:55 97.6 F 78 12 166/97 09/29/18 23:50 97.6 F 83 13 166/99 09/29/18 23:47 97.6 F 79 14 162/101 09/29/18 23:45 97.6 F 09/29/18 21:48 93 H 156/88 09/29/18 21:33 90 156/91 09/29/18 21:04 92 H 173/99 09/29/18 20:48 95 H 148/95 09/29/18 20:34 88 146/89 09/29/18 20:18 89 134/82 09/29/18 19:31 98.3 F 09/29/18 18:01 85 180/99 09/29/18 17:59 83 178/105 Intake and Output 09/29/18 09/30/18 09/30/18 23:59 07:59 15:59 Intake Total 500 1204.167 Output Total 200 250 Balance 300 954.167 Intake: IV 500 1204.167 MAGNESIUM SULFATE 40GM/ 204.167 1000ML 40 gm In 1,000 ml @ 2 GM/HR 50 mls/hr IV DIRECT LEONA Rx#:[id number] PITOCin/NS 20 UNIT/1000ML 1000 DRIP 20 units In 1,000 ml @ 250 mls/hr IV DIRECT LEONA Rx#:[id number] Output: Urine 200 250 Indwelling Catheter 250 Other: Total, Output Amount 250 Weight 70.76 kg Estimated Blood Loss 700 - Exam Breasts: Present: normal Cardiovascular: Present: Regular rate, Normal S1 Lungs: Present: Clear to auscultation Abdomen: Present: normal appearance, soft Vulva: both: normal Uterus: Present: normal, firm, fundal height at umbilicus Extremities: Present: other (SCD in place) Incision: Present: normal, dry, intact Comments: small lochia - Labs Labs: Abnormal lab results 09/29/18 09/29/18 09/29/18 Range/Units 20:02 20:02 20:02 RBC 3.38 L (3.65-5.03) M/mm3 MCH 33 H (28-32) pg MCHC 35 H (30-34) % [place] % (Auto) 9.8 H (0.0-7.3) % [place] # 1.0 H (0.0-0.8) K/mm3 PT (12.2-14.9) Sec. INR (0.87-1.13) APTT (24.2-36.6) Sec. Sodium 133 L (137-145) mmol/L Potassium 5.1 H (3.6-5.0) mmol/L Creatinine 0.6 L (0.7-1.2) mg/dL Magnesium (1.7-2.3) mg/dL Lactate Dehydrogenase 373 H (91-180) units/L Total Creatine Kinase (30-135) units/L CK-MB (CK-2) Rel Index 4.1 H (0-4) Albumin 3.5 L (3.9-5) g/dL 09/29/18 09/30/18 09/30/18 Range/Units 21:43 08:11 09:31 RBC (3.65-5.03) M/mm3 MCH (28-32) pg MCHC (30-34) % [place] % (Auto) (0.0-7.3) % [place] # (0.0-0.8) K/mm3 PT 11.8 L (12.2-14.9) Sec. INR 0.82 L (0.87-1.13) APTT 23.6 L (24.2-36.6) Sec. Sodium (137-145) mmol/L Potassium (3.6-5.0) mmol/L Creatinine (0.7-1.2) mg/dL Magnesium 5.80 H (1.7-2.3) mg/dL Lactate Dehydrogenase (91-180) units/L Total Creatine Kinase 361 H (30-135) units/L CK-MB (CK-2) Rel Index (0-4) Albumin (3.9-5) g/dL
[2018-09-30] MEDS: PROTONIX PO SCH ×2 (11:05→22:15)
[2018-09-30] MEDS: PRENATAL VITAMIN PO SCH (11:06)
[2018-09-30] MEDS: NORMODYNE PO SCH ×3 (11:06→22:15)
[2018-09-30] MEDS: FEOSOL PO SCH (11:07)
--- NOTE | 2018-09-30 14:30 | Progress Note ---
Assessment and Plan - Patient Problems (1) 28 weeks gestation of Current Visit: Yes Status: Acute (2) Severe pre-eclampsia Current Visit: Yes Status: Acute Plan to address problem: Continue magnesium sulfate. Discontinue at midnight. Monitor Mg levels, urine output, DTRs. Monitor BP. Labetolol for BP control. (3) delivery delivered Current Visit: Yes Status: Acute Plan to address problem: Continue routine postop care. Subjective - Subjective Date of service: 09/30/18 Principal diagnosis: POD #1; s/p Repeat LTCS; Pre-eclampsia Interval history: Patient is a 32 year old who is S/P C/section last night for severe pre- eclampsia. She is on magnesium sulfate. Her last Mg level was 5.8 this AM. She denies any complaint right now. Her BP is stable, urine output is adequate, DTRs normal. She is tolerating regular diet well. Objective - Vital Signs Latest vital signs: Vital Signs Temp Pulse Resp BP BP Pulse Ox 09/30/18 14:20 82 125/59 09/30/18 13:50 82 128/58 09/30/18 13:20 89 130/63 09/30/18 12:50 82 129/59 09/30/18 12:20 93 H 139/64 09/30/18 11:50 91 H 141/91 09/30/18 11:20 83 134/62 09/30/18 11:09 91 H 99 09/30/18 11:06 86 137/81 09/30/18 11:04 87 99 09/30/18 10:59 87 98 09/30/18 10:54 97 H 99 09/30/18 10:50 92 H 137/81 09/30/18 10:49 95 H 99 09/30/18 10:44 87 99 09/30/18 10:39 95 H 99 09/30/18 10:34 89 99 09/30/18 10:29 85 99 09/30/18 10:24 85 99 09/30/18 10:20 81 135/72 09/30/18 10:19 94 H 99 09/30/18 10:14 87 100 09/30/18 10:09 86 100 09/30/18 10:04 82 100 09/30/18 09:59 81 99 09/30/18 09:54 82 100 09/30/18 09:50 80 138/85 09/30/18 09:49 79 100 09/30/18 09:44 84 100 09/30/18 09:39 79 100 09/30/18 09:34 81 99 09/30/18 09:29 81 99 09/30/18 09:24 85 99 09/30/18 09:20 82 136/74 09/30/18 09:18 85 99 09/30/18 09:14 92 H 99 09/30/18 09:09 89 98 09/30/18 09:04 83 98 09/30/18 08:58 85 99 09/30/18 08:53 87 99 09/30/18 08:50 93 H 116/73 09/30/18 08:48 97 H 99 09/30/18 08:43 85 98 09/30/18 08:39 92 H 99 09/30/18 08:33 91 H 98 09/30/18 08:28 86 98 09/30/18 08:23 85 98 09/30/18 08:21 93 H 141/82 09/30/18 08:19 88 98 09/30/18 08:13 95 H 98 09/30/18 08:09 92 H 98 09/30/18 08:04 81 96 09/30/18 07:59 83 96 09/30/18 07:53 83 96 09/30/18 07:50 83 136/71 09/30/18 07:48 82 96 09/30/18 07:43 83 97 09/30/18 07:38 86 97 09/30/18 07:33 84 97 09/30/18 07:28 83 97 09/30/18 07:23 82 98 09/30/18 07:20 83 156/86 09/30/18 07:18 87 99 09/30/18 07:13 87 99 09/30/18 07:08 87 99 09/30/18 07:03 86 99 09/30/18 06:58 90 99 09/30/18 06:53 89 99 09/30/18 06:50 84 154/80 09/30/18 06:48 89 99 09/30/18 06:43 89 99 09/30/18 06:38 95 H 100 09/30/18 06:33 94 H 99 09/30/18 06:28 92 H 99 09/30/18 06:23 90 100 09/30/18 06:20 87 141/78 09/30/18 06:18 87 100 09/30/18 06:13 91 H 99 09/30/18 06:08 89 99 09/30/18 06:03 87 98 09/30/18 05:58 93 H 99 09/30/18 05:53 94 H 98 09/30/18 05:50 92 H 135/76 09/30/18 05:48 86 96 09/30/18 05:43 88 96 09/30/18 05:38 88 96 09/30/18 05:33 87 97 09/30/18 05:28 85 96 09/30/18 05:23 88 96 09/30/18 05:20 90 133/71 09/30/18 05:18 87 97 09/30/18 05:13 85 96 09/30/18 05:08 86 96 09/30/18 05:03 86 96 09/30/18 04:58 84 96 09/30/18 04:53 90 96 09/30/18 04:50 93 H 133/74 09/30/18 04:48 87 95 09/30/18 04:43 86 96 09/30/18 04:38 88 96 09/30/18 04:33 87 96 09/30/18 04:28 94 H 96 09/30/18 04:23 86 96 09/30/18 04:20 95 H 140/71 09/30/18 04:18 86 96 09/30/18 04:13 86 95 09/30/18 04:08 84 97 09/30/18 04:03 88 97 09/30/18 03:58 91 H 98 09/30/18 03:53 86 96 09/30/18 03:50 89 138/78 09/30/18 03:48 83 96 09/30/18 03:43 85 96 09/30/18 03:38 86 96 09/30/18 03:33 98 H 98 09/30/18 03:28 98 H 98 09/30/18 03:23 99 H 98 09/30/18 03:20 92 H 140/68 09/30/18 03:18 95 H 98 09/30/18 03:13 86 98 09/30/18 03:08 91 H 99 09/30/18 03:03 94 H 98 09/30/18 03:00 98.1 F 16 09/30/18 02:58 99 H 99 09/30/18 02:53 90 98 09/30/18 02:50 98 H 136/89 09/30/18 02:48 86 98 09/30/18 02:43 97 H 137/80 99 09/30/18 02:35 110 H 98 09/30/18 02:34 107 H 94 09/30/18 02:30 84 98 09/30/18 02:27 91 H 174/92 09/30/18 02:25 97 H 98 09/30/18 02:20 100 H 174/92 98 09/30/18 02:15 93 H 99 09/30/18 02:10 87 99 09/30/18 02:05 97 H 97 09/30/18 02:00 95 H 98 09/30/18 01:55 92 H 98 09/30/18 01:52 98.0 F 16 09/30/18 01:50 93 H 154/87 99 09/30/18 00:55 98.4 F 92 H 11 L 153/93 09/30/18 00:40 98.1 F 99 H 152/98 09/30/18 00:25 97.5 F L 88 14 160/97 09/30/18 00:15 90 170/110 09/30/18 00:10 97.6 F 82 15 170/100 09/30/18 00:00 90 170/110 09/29/18 23:55 97.6 F 78 12 166/97 09/29/18 23:50 97.6 F 83 13 166/99 09/29/18 23:47 97.6 F 79 14 162/101 09/29/18 23:45 97.6 F 09/29/18 21:48 93 H 156/88 09/29/18 21:33 90 156/91 09/29/18 21:04 92 H 173/99 09/29/18 20:48 95 H 148/95 09/29/18 20:34 88 146/89 09/29/18 20:18 89 134/82 09/29/18 19:31 98.3 F 09/29/18 18:01 85 180/99 09/29/18 17:59 83 178/105 Intake and Output 09/29/18 09/30/18 09/30/18 23:59 07:59 15:59 Intake Total 500 1204.167 Output Total 200 250 Balance 300 954.167 Intake: IV 500 1204.167 MAGNESIUM SULFATE 40GM/ 204.167 1000ML 40 gm In 1,000 ml @ 2 GM/HR 50 mls/hr IV DIRECT LEONA Rx#:[id number] PITOCin/NS 20 UNIT/1000ML 1000 DRIP 20 units In 1,000 ml @ 250 mls/hr IV DIRECT LEONA Rx#:[id number] Output: Urine 200 250 Indwelling Catheter 250 Other: Total, Output Amount 250 Weight 70.76 kg Estimated Blood Loss 700 - Exam Narrative Exam: Incision is clean, dry. No oozing. Cardiovascular: Present: Normal S1, Normal S2 Lungs: Present: Clear to auscultation Vulva: both: normal Deep Tendon Reflex Grade: Normal +2 - Labs Labs: Abnormal lab results 09/29/18 09/29/18 09/29/18 Range/Units 20:02 20:02 20:02 RBC 3.38 L (3.65-5.03) M/mm3 MCH 33 H (28-32) pg MCHC 35 H (30-34) % Menard % (Auto) 9.8 H (0.0-7.3) % Menard # 1.0 H (0.0-0.8) K/mm3 PT (12.2-14.9) Sec. INR (0.87-1.13) APTT (24.2-36.6) Sec. Sodium 133 L (137-145) mmol/L Potassium 5.1 H (3.6-5.0) mmol/L Creatinine 0.6 L (0.7-1.2) mg/dL Magnesium (1.7-2.3) mg/dL Lactate Dehydrogenase 373 H (91-180) units/L Total Creatine Kinase (30-135) units/L CK-MB (CK-2) Rel Index 4.1 H (0-4) Albumin 3.5 L (3.9-5) g/dL 09/29/18 09/30/18 09/30/18 Range/Units 21:43 08:11 09:31 RBC (3.65-5.03) M/mm3 MCH (28-32) pg MCHC (30-34) % Menard % (Auto) (0.0-7.3) % Menard # (0.0-0.8) K/mm3 PT 11.8 L (12.2-14.9) Sec. INR 0.82 L (0.87-1.13) APTT 23.6 L (24.2-36.6) Sec. Sodium (137-145) mmol/L Potassium (3.6-5.0) mmol/L Creatinine (0.7-1.2) mg/dL Magnesium 5.80 H (1.7-2.3) mg/dL Lactate Dehydrogenase (91-180) units/L Total Creatine Kinase 361 H (30-135) units/L CK-MB (CK-2) Rel Index (0-4) Albumin (3.9-5) g/dL
[2018-09-30 16:11] LABS: Hematocrit 30.8 % (30.3-42.9); Hemoglobin 10.7 gm/dl (10.1-14.3)
[2018-09-30] MEDS ORDERED: CALCIUM GLUCONATE 1,000 MG in NACL 0.9% 100 ML IV ONE (18:23)
--- NOTE | 2018-09-30 18:50 | Event Note ---
Date: 09/30/18 Patient is a 32 year old who is S/P C/section last night for severe pre- eclampsia. She is on magnesium sulfate at 2 gm/hr. Her last Mg level was 5.8 at 8 AM. She has been assessed throughout the day and she has been stable. Her Mg level at 3:30 PM was 10.8 and it was not discovered until 6:45 PM when I came in to evaluate the patient. She denies any complaint right now. Her BP is 138/81, HR 82, RR 18, O2 sat 98% RA, urine output is adequate >60 cc/hr, DTRs normal. She is tolerating regular diet well. Calcium gluconate was ordered but held u ntil repeat Mg level confirmed. The nurse later mentioned that the field laborer who queenie the blood earlier queenie it from the arm where the magnesium was being infused. Mg level ordered.
--- NOTE | 2018-09-30 19:13 | Event Note ---
Date: 09/30/18 Chest pain better EKG
[2018-09-30] MEDS ORDERED: M-M-R II VACCINE SUB-Q ONE (23:49)
[2018-10-01] MEDS ORDERED: BOOSTRIX IM ONE (06:00)
[2018-10-01] MEDS: PERCOCET 5/325 PO PRN ×3 (09:15→22:21)
[2018-10-01] MEDS: FEOSOL PO SCH (09:15)
[2018-10-01] MEDS: PROTONIX PO SCH (09:16)
[2018-10-01] MEDS: PRENATAL VITAMIN PO SCH (09:16)
[2018-10-01] MEDS: IBUPROFEN PO PRN ×3 (09:16→22:21)
--- NOTE | 2018-10-01 09:32 | Progress Note ---
Assessment and Plan - Patient Problems (1) delivery delivered Current Visit: Yes Status: Acute (2) Pre-eclampsia Current Visit: No Status: Acute Qualifiers: Trimester: third trimester Qualified Code(s): O14.93 - Unspecified pre- eclampsia, third trimester Plan to address problem: S/P Magneium drip Continue Labetalol 200 mg BID Consult with physician r/t POC Anticipate d/c home in 24-48 hrs (3) Anemia Current Visit: Yes Status: Acute Qualifiers: Anemia type: iron deficiency Plan to address problem: Continue po iron supplementation once daily (4) Encounter for tubal ligation Current Visit: Yes Status: Acute Subjective - Subjective Date of service: 10/01/18 (927) Principal diagnosis: POD #2; s/p Repeat LTCS; Pre-eclampsia Interval history: See Admission H & P; Operative report; and PP notes Patient reports: appetite normal, voiding normally, flatus, ambulating normally, other (Currently in pain, requested medication, is fairly controlled with meds), no bowel movement [place]: in NICU, other (breast milk per breast pump) Objective - Vital Signs Latest vital signs: Vital Signs Temp Pulse Resp BP BP Pulse Ox 10/01/18 07:34 98.5 F 74 18 125/73 10/01/18 04:10 98.2 F 75 20 126/71 100 10/01/18 01:45 118/72 09/30/18 23:50 98.0 F 77 20 149/92 99 09/30/18 22:10 80 141/76 09/30/18 22:09 89 98 09/30/18 22:04 88 98 09/30/18 21:59 80 98 09/30/18 21:54 80 98 09/30/18 21:50 78 138/80 09/30/18 21:49 88 97 09/30/18 21:44 82 98 09/30/18 21:39 79 98 09/30/18 21:34 86 98 09/30/18 21:29 86 98 09/30/18 21:24 84 97 09/30/18 21:20 85 133/65 09/30/18 21:19 79 98 09/30/18 21:14 91 H 98 09/30/18 21:09 81 98 09/30/18 21:04 89 98 04/01/19 20:59 86 98 09/30/18 20:54 85 98 09/30/18 20:50 87 136/65 09/30/18 20:49 84 98 09/30/18 20:44 83 98 09/30/18 20:39 80 98 09/30/18 20:34 78 99 09/30/18 20:29 89 98 09/30/18 20:24 80 98 09/30/18 20:20 80 132/74 09/30/18 20:19 84 97 09/30/18 20:14 83 98 09/30/18 20:09 85 99 09/30/18 20:04 87 98 09/30/18 19:59 84 98 09/30/18 19:54 81 98 09/30/18 19:50 80 149/86 09/30/18 19:49 82 98 09/30/18 19:44 80 98 09/30/18 19:39 80 98 09/30/18 19:34 81 98 09/30/18 19:29 80 98 09/30/18 19:24 82 98 09/30/18 19:23 78 134/72 09/30/18 19:22 98.3 F 81 16 134/72 09/30/18 19:20 84 144/84 09/30/18 19:19 88 98 09/30/18 19:14 94 H 98 09/30/18 19:09 86 98 09/30/18 19:04 84 98 09/30/18 18:59 81 98 09/30/18 18:55 97.4 F L 82 18 139/81 98 09/30/18 18:54 82 98 09/30/18 18:50 83 139/84 09/30/18 18:49 82 98 09/30/18 18:44 85 98 09/30/18 18:39 86 98 09/30/18 18:20 78 139/81 09/30/18 17:50 88 133/91 09/30/18 17:20 81 132/76 09/30/18 16:50 85 125/74 09/30/18 16:40 97.8 F 18 09/30/18 16:20 75 129/68 09/30/18 15:50 76 127/67 09/30/18 15:20 80 113/70 09/30/18 14:50 77 131/63 09/30/18 14:20 82 125/59 09/30/18 13:50 82 128/58 09/30/18 13:20 89 130/63 09/30/18 12:50 82 129/59 09/30/18 12:20 93 H 139/64 09/30/18 11:50 91 H 141/91 09/30/18 11:22 97.9 F 18 09/30/18 11:20 83 134/62 09/30/18 11:09 91 H 99 09/30/18 11:06 86 137/81 09/30/18 11:04 87 99 09/30/18 10:59 87 98 09/30/18 10:54 97 H 99 09/30/18 10:50 92 H 137/81 09/30/18 10:49 95 H 99 09/30/18 10:44 87 99 09/30/18 10:39 95 H 99 09/30/18 10:34 89 99 09/30/18 10:29 85 99 09/30/18 10:24 85 99 09/30/18 10:20 81 135/72 09/30/18 10:19 94 H 99 09/30/18 10:14 87 100 09/30/18 10:09 86 100 09/30/18 10:04 82 100 09/30/18 09:59 81 99 09/30/18 09:54 82 100 09/30/18 09:50 80 138/85 09/30/18 09:49 79 100 09/30/18 09:44 84 100 09/30/18 09:39 79 100 09/30/18 09:34 81 99 09/30/18 09:29 81 99 Intake and Output 09/30/18 10/01/18 10/01/18 23:59 07:59 15:59 Intake Total 360 Output Total 900 400 Balance -900 -40 Intake: Oral 360 Output: Urine 900 400 Indwelling Catheter 900 400 Other: Total, Intake Amount 360 Total, Output Amount 900 400 - Exam Breasts: Present: normal Cardiovascular: Present: Regular rate, Normal S1, Normal S2 Lungs: Present: Clear to auscultation, Normal air movement Abdomen: Present: soft, normal bowel sounds Uterus: Present: firm, fundal height below umbilicus (U-1) Extremities: Present: normal Deep Tendon Reflex Grade: Normal +2 Incision: Present: dressed (no shadow bleeding noted, clean and dry) - Labs Labs: Abnormal lab results 09/30/18 09/30/18 09/30/18 Range/Units 09:31 15:34 20:48 Magnesium 10.80 H 4.20 H (1.7-2.3) mg/dL Total Creatine Kinase 361 H (30-135) units/L
[2018-10-01] MEDS: NORMODYNE PO SCH ×2 (09:33→22:22)
--- NOTE | 2018-10-01 17:17 | Discharge Summary ---
Providers - Providers Date of Admission: 09/29/18 18:24 Date of discharge: 10/02/18 (1200) Attending physician: JULIETH OH MD Primary care physician: JULIETH OH MD Hospitalization Reason for admission: section Delivery: Procedure: section, bilateral tubal ligation Episiotomy: none Laceration: none Incision: dry (Steri-strips intact, no signs of infection), intact Other procedures: tubal ligation complications: other (Anemia; HTN) Discharge diagnosis: other (S/P repeat C/S) Range baby: female Hospital course: See Admission H & P; Operative report and; PP notes Condition at discharge: Stable Disposition: - TO HOME OR SELFCARE - Discharge Diagnoses (1) delivery delivered Status: Acute (2) Pre-eclampsia Status: Acute Qualifiers: Trimester: third trimester Qualified Code(s): O14.93 - Unspecified pre- eclampsia, third trimester (3) Anemia Status: Acute Qualifiers: Anemia type: iron deficiency (4) Encounter for tubal ligation Status: Acute Plan - Discharge Medications Prescriptions: Ferrous Sulfate [Feosol 325 MG tab] 325 mg PO BID #60 tablet Ibuprofen [Motrin] 800 mg PO Q8HR PRN #30 tablet PRN Reason: Pain, Mild (1-3) oxyCODONE /ACETAMINOPHEN [Percocet 5/325] 1 tab PO Q6HR PRN #30 tablet PRN Reason: Pain Pnv No.95/Ferrous Fum/Folic AC [Prenavite Tablet] 1 each PO DAILY #30 tablet - Provider Discharge Summary Activity: routine, no sex for 6 weeks, no heavy lifting 4 weeks, no strenuous exercise Diet: routine Instructions: routine Additional instructions: [] Smoking cessation referral if applicable(refer to patient education folder for contact #) [] Refer to [facility] Booklet Call your doctor immediately for: * Fever > 100.5 * Heavy vaginal bleeding ( >1 pad per hour) * Severe persistent headache * Shortness of breath * Reddened, hot, painful area to leg or breast * Drainage or odor from incision. Continue Labetalol 200 mg by mouth twice daily Follow up in office for 1 week B/P check * Keep incision clean and dry at all times and follow doctor's instructions regarding bathing/showering - Follow up plan Follow up: JULIETH OH MD [Primary Care Provider] - 7 Days
[2018-10-02] MEDS: IBUPROFEN PO PRN (06:40)
[2018-10-02] MEDS: PROTONIX PO SCH (09:53)
[2018-10-02] MEDS: NORMODYNE PO SCH (09:53)
[2018-10-02] MEDS: PRENATAL VITAMIN PO SCH (09:53)
[2018-10-02] MEDS: FEOSOL PO SCH (09:53)
[2018-10-02] MEDS ORDERED: NORVASC PO SCH (10:00)
[2018-10-02 15:21] VITALS: BP 130/79
== END 2018-10-02 12:00 | disposition home or self-care (01) | DRG 765 ==
LOC: TRG 17:17 → LD 18:24 → OBSVTOIN 18:24 → OB 09-30 22:49
PROVIDERS: ADMIT Obstetrics & Gynecology; ATTEND Obstetrics & Gynecology
PROC: 10D00Z1 Extraction of Products of Conception, Low, Open Approach (ICD-10-PCS; principal; 2018-09-29)
PROC: 0UL70CZ Occlusion of Bilateral Fallopian Tubes with Extraluminal Device, Open Approach (ICD-10-PCS; 2018-09-29)
PROC: 3E0234Z Introduction of Serum, Toxoid and Vaccine into Muscle, Percutaneous Approach (ICD-10-PCS; 2018-09-30)
DX: O11.4 Pre-existing hypertension with pre-eclampsia, complicating childbirth (principal); O45.93 Premature separation of placenta, unspecified, third trimester; O34.211 Maternal care for low transverse scar from previous cesarean delivery; Z37.0 Single live birth; O99.02 Anemia complicating childbirth; D57.3 Sickle-cell trait; O99.52 Diseases of the respiratory system complicating childbirth; J45.909 Unspecified asthma, uncomplicated; O10.02 Pre-existing essential hypertension complicating childbirth; D50.9 Iron deficiency anemia, unspecified; Z3A.29 29 weeks gestation of pregnancy; Z23 Encounter for immunization
CPT/HCPCS: 36415; 76815; 76819; 76820; 80053; 81001; 82550; 82553; 83615; 83735; 84484; 84550; 85014; 85018; 85025; 85384; 85610; 85730; 86850; 86900; 86901; 88307; 90707; 93005; 93010; G0378; C9250; J0360; J0610; J0690; J1170; J1885; J2405; J2590; J2765; J3010; J3475; J7120